=== PATIENT | female | born 1990 | race Caucasian/White ===

== ENCOUNTER 2021-03-04 06:27 | Inpatient (IN) ==
[2021-03-04] MEDS ORDERED: LACTATED RINGERS 1,000 ML IV SCH ×3 (07:30→12:00)
[2021-03-04] MEDS ORDERED: OXYTOCIN/LR 20 UNIT/1,000 ML BAG IV ONE ×2 (07:34→20:58)
[2021-03-04] MEDS ORDERED: MEPERIDINE 50 MG/1 ML VIAL IV PRN (07:38)
[2021-03-04] MEDS ORDERED: ONDANSETRON 4 MG/2 ML VIAL IV PRN ×2 (07:38→20:58)
[2021-03-04] MEDS ORDERED: BUTORPHANOL 2 MG/ML VIAL IV PRN (07:38)
[2021-03-04 07:54] LABS: Basophils % 0.2 % (0.0-0.8); Eosinophils # 0.1 10*3/uL (0.0-0.87); Hematocrit 39.9 VOL% (35.7-47.0); Hemoglobin 13.1 GM/DL (12.0-16.0); Immature Granulocytes % 0.5 %; Immature Granulocytes Absolute 0.05 #; Lymphocytes # 2.1 10*3/uL (1.4-4.0); Lymphocytes % 21.4 % (21.3-54.2); Mean Corpuscular HGB Conc 32.8 GM/DL (32-36); Mean Platelet Volume 11.8 FL (9.6-12.0); Monocytes % 6.5 % (1.7-12.7); Neutrophils % 70.4 % (38.7-73.9); Platelet Count 201 T/CUMM (130-400); Red Cell Distribution Width 13.6 % (9.3-17.3); White Blood Count 9.7 T/CUMM (4-12)
[2021-03-04 08:00] LABS: Bacteria,Urine Occasional /HPF (Few); Bilirubin,Urine Negative (Negative); Blood, Urine Small mg/dL (Negative); Glucose,Urine (UA) Negative (Negative); Ketones,Urine Negative (Negative); Mucus,Urine Occasional /LPF (Occasional); Nitrite,Urine Negative (Negative); Protein,Urine Negative; RBC,Urine 25 /HPF (0-4); Squamous Epithelial Cell,Urine Occasional /HPF (0-10); Urine Appearance Slightly Hazy (Clear); Urine Color Yellow (Yellow); Urine Urobilinogen < 2.0 EU/DL (0.2-1.0)
[2021-03-04] MEDS ORDERED: OXYTOCIN/LR 20 UNIT/1,000 ML BAG IV SCH (08:00)
[2021-03-04] MEDS ORDERED: CITRIC ACID/SODIUM CITRATE 30 ML UDCUP PO ONE (11:21)
[2021-03-04] MEDS ORDERED: LACTATED RINGERS 1,000 ML IV ONE (11:21)
[2021-03-04] MEDS ORDERED: FAMOTIDINE 20 MG/2 ML VIAL IV ONE (11:21)
[2021-03-04] MEDS ORDERED: ePHEDrine 50 MG/ML VIAL IV PRN (11:21)
[2021-03-04] MEDS ORDERED: fentaNYL 2 MCG/ROPIV 0.2% EPID 100 ML EPIDURAL ONE (11:49)
[2021-03-04] MEDS ORDERED: NALOXONE 0.4 MG/ML VIAL IV PRN (11:51)
[2021-03-04] MEDS ORDERED: hydrOXYzine HCL 25 MG/1 ML VIAL IM PRN (11:51)
[2021-03-04] MEDS ORDERED: diphenhydrAMINE 50 MG/1 ML VIAL IV PRN ×2 (11:51)
[2021-03-04] MEDS ORDERED: PROMETHAZINE 25 MG/1 ML VIAL IM ONE (11:51)
[2021-03-04] MEDS ORDERED: fentaNYL 2 MCG/ROPIV 0.2% EPID 100 ML EPIDURAL SCH (12:00)
[2021-03-04] MEDS ORDERED: ePHEDrine 50 MG/ML VIAL IV ONE ×4 (12:37→13:12)
[2021-03-04] MEDS ORDERED: PHENYLEPHRINE 1 MG/10 ML SYRINGE IV ONE (13:13)
[2021-03-04] MEDS ORDERED: HETASTARCH 6% 0 ML IV ONE (13:22)
[2021-03-04] MEDS ORDERED: ePHEDrine 50 MG/ML VIAL IM ONE (13:29)
[2021-03-04 17:17] LABS: Bilirubin,Urine Negative (Negative); Blood, Urine Negative (Negative); Glucose,Urine (UA) Negative (Negative); Ketones,Urine 20 mg/dL (Negative); Mucus,Urine Occasional /LPF (Occasional); Nitrite,Urine Negative (Negative); Protein,Urine Negative; RBC,Urine 3 /HPF (0-4); Urine Appearance CLEAR (Clear); Urine Color Yellow (Yellow); Urine Urobilinogen < 2.0 EU/DL (0.2-1.0)
[2021-03-04] MEDS ORDERED: fentaNYL 100 MCG/2 ML VIAL ONE (18:32)
[2021-03-04] MEDS ORDERED: LIDOCAINE MPF 2% /EPI 20 ML VIAL ONE (18:32)
[2021-03-04] MEDS ORDERED: miSOPROStoL 200 MCG TABLET ONE (18:37)
[2021-03-04] MEDS ORDERED: SODIUM CHLORIDE 0.9% 0 ML IV ONE (18:37)
[2021-03-04] MEDS ORDERED: TRANEXAMIC ACID 1,000 MG/10 ML VIAL ONE (18:37)
[2021-03-04] MEDS ORDERED: METHYLERGONOVINE 0.2 MG/1 ML AMP ONE (18:37)
[2021-03-04] MEDS ORDERED: CARBOPROST TROMETHAMINE 250 MCG/ML AMP IM ONE (18:38)
[2021-03-04] MEDS ORDERED: LIDOCAINE 1% 50 ML VIAL ONE (18:44)
[2021-03-04] MEDS ORDERED: LIDOCAINE 1% 20 ML VIAL MISC INJ ONE (19:00)
[2021-03-04 19:29] LABS: Cord Venous Blood HCO3 22.2 MMOL/L; Cord Venous Blood PCO2 42.4 MMHG; Cord Venous Blood PO2 33.7
[2021-03-04] MEDS ORDERED: LANOLIN 50% CREAM 0.3 OZ TUBE TOP PRN (20:58)
[2021-03-04] MEDS ORDERED: HYDROCORTISONE 2.5% RECTAL CREAM 30 GM TUBE TOP PRN (20:58)
[2021-03-04] MEDS ORDERED: RHO(D) IMMUNE GLOBULIN 300 MCG SYRINGE IM ONE (20:58)
[2021-03-04] MEDS ORDERED: DIPH/TET/ACEL PERT BOOSTER VACCINE 0.5 ML VIAL IM ONE (20:58)
[2021-03-04] MEDS ORDERED: ACETAMINOPHEN 325 MG TABLET PO PRN (20:58)
[2021-03-04] MEDS ORDERED: MEASLES/MUMPS/RUBELLA VACCINE 0.5 ML VIAL SUBCUT ONE (20:58)
[2021-03-04] MEDS ORDERED: BENZOCAINE 20%/MENTHOL 0.5% SPRAY 56 GM CAN TOP PRN (20:58)
[2021-03-04] MEDS ORDERED: oxyCODONE/ACETAMINOPHEN 5-325 MG TABLET PO PRN (20:58)
[2021-03-04] MEDS ORDERED: WITCH HAZEL PADS 100/JAR TOP PRN (20:58)
[2021-03-04] MEDS ORDERED: BISACODYL 10 MG SUPP RECTAL PRN (20:58)
[2021-03-04] MEDS: IBUPROFEN 800 MG TABLET PO PRN (22:22)
[2021-03-05] MEDS: DOCUSATE SODIUM 100 MG CAPSULE PO SCH ×3 (03:40→21:16)
[2021-03-05] MEDS: IBUPROFEN 800 MG TABLET PO PRN (03:46)
[2021-03-05] MEDS: LEVOTHYROXINE 50 MCG TABLET PO SCH (05:55)
[2021-03-05 06:03] LABS: Basophils % 0.1 % (0.0-0.8); Eosinophils # 0.1 10*3/uL (0.0-0.87); Eosinophils % 0.5 % (0.00-10.9); Hematocrit 31.4 VOL% (35.7-47.0); Hemoglobin 10.3 GM/DL (12.0-16.0); Immature Granulocytes % 0.7 %; Immature Granulocytes Absolute 0.09 #; Lymphocytes # 2.3 10*3/uL (1.4-4.0); Lymphocytes % 18.5 % (21.3-54.2); Mean Corpuscular HGB Conc 32.8 GM/DL (32-36); Mean Platelet Volume 11.6 FL (9.6-12.0); Monocytes % 8.2 % (1.7-12.7); Platelet Count 161 T/CUMM (130-400); Red Blood Count 3.27 MC/CUMM (3.8-5.5); Red Cell Distribution Width 13.8 % (9.3-17.3); White Blood Count 12.5 T/CUMM (4-12)
[2021-03-05] MEDS: oxyCODONE/ACETAMINOPHEN 5-325 MG TABLET PO PRN ×2 (08:57→17:10)
[2021-03-06] MEDS: LEVOTHYROXINE 50 MCG TABLET PO SCH (06:16)
[2021-03-06] MEDS: oxyCODONE/ACETAMINOPHEN 5-325 MG TABLET PO PRN (07:13)
[2021-03-06] MEDS: DOCUSATE SODIUM 100 MG CAPSULE PO SCH (08:50)
[2021-03-06 16:33] VITALS: BP 134/74
== END 2021-03-06 11:40 | disposition home or self-care (01) | DRG 806 ==
LOC: N.LD 06:27 → N.OB 23:14
PROVIDERS: ADMIT Obstetrics & Gynecology; ATTEND Obstetrics & Gynecology